=== PATIENT | female | born 1950 | race Caucasian/White ===

== ENCOUNTER 2017-03-29 07:40 | Inpatient (IN) | payer MEDICARE, OTHER ==
[~2017-03-29] VITALS: Ht 144.8 cm; Wt 83.9 kg
[~2017-03-29 07:40] MED LIST: DULO60CA45 PO; FLUT50DI IH; HYDR-3658 PO; METF500T7 PO; OMEP20CA10 PO; PREG100C PO; RIVA10TA PO; SIMV20TA6 PO; VENL75CA56 PO
[2017-03-29 08:00] VITALS: BP 152/71
--- NOTE | 2017-03-29 08:01 | NUR ---
RN NOTES PT BROUGHT TO FLOOR, DIRECT ADMIT. PT ON RA, RESPIRATIONS ARE EVEN AND UNLABORED. SAFETY MEASURES ARE IN PLACE, CALL LIGHT IS IN REACH. WILL CONTINUE TO MONITOR.
[2017-03-29] MEDS ORDERED: BACITRACIN 50000 UNITS/VIAL ONE (08:50)
[2017-03-29] MEDS ORDERED: KETOROLAC TROMETHAMINE INJ 30 MG/ML VIAL ONE (08:50)
[2017-03-29] MEDS ORDERED: BUPIVACAINE 0.5 % PF 150 MG/30 ML VIAL ONE ×2 (08:50→11:06)
[2017-03-29] MEDS ORDERED: MIDAZOLAM HCL 2 MG/2ML VIAL ONE (09:20)
[2017-03-29] MEDS ORDERED: FENTANYL PF 100MCG/2ML AMPUL ONE ×4 (09:20→12:30)
[2017-03-29] MEDS ORDERED: TRANEXAMIC ACID 3,000 MG in SODIUM CHLORIDE IRRIG SOLUTION 70 ML IR ONE (09:30)
[2017-03-29] MEDS ORDERED: ROCURONIUM BROMIDE 50 MG/5 ML ONE (10:22)
[2017-03-29] MEDS ORDERED: SENOKOT 8.6 MG TABLET PO PRN (13:00)
[2017-03-29] MEDS ORDERED: IV D5/0.45 NACL 1,000 ML IV PRN (13:00)
[2017-03-29] MEDS ORDERED: AMBIEN 5 MG TABLET PO PRN (13:00)
[2017-03-29] MEDS ORDERED: HYDROCODONE/APAP 5/325MG 1 EACH TABLET PO PRN (13:00)
[2017-03-29] MEDS ORDERED: DULCOLAX 10 MG/SUPP.RECT RC PRN (13:00)
[2017-03-29] MEDS ORDERED: COLACE 250 MG CAPSULE PO PRN (13:00)
[2017-03-29] MEDS ORDERED: ZOFRAN 4mg/2ML IV PRN (13:00)
[2017-03-29 13:25] VITALS: BP 136/72
[2017-03-29 14:00] VITALS: BP 122/68
[2017-03-29] MEDS ORDERED: HYDROMORPHONE MDV 30 MG in IV NS 0.9% 15 ML, PCA TOTAL VOLUME 1 BAG IV PRN ×3 (14:00)
[2017-03-29] MEDS ORDERED: HYDROCODONE/APAP 10/325MG 1 EA TABLET PO PRN (14:30)
[2017-03-29] MEDS ORDERED: CLONIDINE HCL 0.1 MG TABLET PO PRN (14:30)
[2017-03-29] MEDS ORDERED: MAG HYDROX/AL HYDROX/SIMETH 30 ML UDC PO PRN (14:30)
[2017-03-29] MEDS ORDERED: MAGNESIUM HYDROXIDE 30 ML UDC PO PRN (14:30)
[2017-03-29] MEDS ORDERED: PROMETHAZINE HCL 25 MG/ML AMPUL IM PRN (14:30)
[2017-03-29] MEDS ORDERED: MENTHOL/CETYLPYRD (CEPACOL) 1 LOZ LOZENGE PO PRN (14:30)
[2017-03-29] MEDS ORDERED: ONDANSETRON HCL/PF 4 MG/2 ML VIAL IV PRN (14:30)
[2017-03-29] MEDS ORDERED: diphenhydrAMINE HCL 25 MG CAPSULE PO PRN (14:30)
[2017-03-29] MEDS ORDERED: NALOXONE HCL 0.4 MG/ML AMPUL IV PRN (14:30)
[2017-03-29] MEDS ORDERED: BISACODYL SUPP (10 MG) 10 MG/SUPP.RECT SUPP.RECT RC PRN (14:30)
[2017-03-29 16:00] VITALS: BP_SYST 107; BP_SYST 130; BP_DIAS 57; BP_DIAS 69
[2017-03-29] MEDS: DOCUSATE SODIUM 100 MG CAPSULE PO SCH (16:51)
[2017-03-29] MEDS: ANCEF 1 G in IV D5W 50 ML IV SCH (17:02)
--- NOTE | 2017-03-29 18:37 | NUR ---
RN NOTES PT IS SITTING UP IN BED, RESTING COMFORTABLY. PT ON 2L O2, RESPIRATIONS ARE EVEN AND UNLABORED. IV ON L HAND INTACT AND RUNNING D51/2 NS @ 125ML/HR. DILAUDID IN AIRFIELD OPERATIONS SPECIALIST PUMP CONNECTED TO PT, PT HAS CONTROL FOR DEMAND DOSE. VITAL SIGNS ARE WNL, NO SIGNS OF DISTRESS NOTED. SAFETY MEASURES ARE IN PLACE, CALL LIGHT IS IN REACH. WILL ENDORSE TO SAS STATISTICAL PROGRAMMER RN FOR CONTINUITY OF CARE.
[2017-03-29 20:00] VITALS: BP 128/64
--- NOTE | 2017-03-29 20:00 | NUR ---
VSS 99.2-95-RR 18-20 BP 128/64. SATS 93% ON O2 @ 2 LITERS NC. COLOR GOOD. PATIENT A&O X 3 WITH APPROPRIATE AFFECT. SKIN WARM, DRY, AND INTACT WITH IV VIA LEFT HAND FOR D5 1/2 N.S. @ 125 CC/HOUR. PATIENT ALSO HAS A RIGHT KNEE DRESSING S/P RIGHT KNEE ARTHROPLASTY EARLIER TODAY. PATIENT HAS AN APPROPRIATE 1+ NONPITTING EDEMA TO RIGHT LEG AND FOOT BUT WITH BRISK CAPILLARY REFILL AND GOOD STRONG PEDAL PULSES BILATERALLY. ABDOMEN SOFTLY DISTENDED WITH AUDIBLE BOWEL SOUNDS. INDWELLING OLEA CATHETER FOR QUANTITY SUFFICIENT OF A CLEAR, YELLOW URINE. PAIN CURRENTLY CONTROLLED BY A DILAUDID RN PEDIATRIC 1:1 CONCENTRATION WITH NO BASAL RATE AND RN PEDIATRIC OFFERS 0.2 MG/10 MINUTES. VTBI=29.6. PATIENT SHOWS NO SIGNS OF ACUTE CARDIAC/RESPIRATORY DISTRESS OR SUPPRESSION. Addendum: 03/30/17 at 0006 by GIL MCCOY RN JS NOTE
[2017-03-29] MEDS: PANTOPRAZOLE 40 MG TABLET.DR PO SCH (21:38)
--- NOTE | 2017-03-29 22:00 | NUR ---
RN NOTE HE=20, COLOR GOOD. PATIENT MAINTAINS PAIN CONTROL WITH DILAUDID BATCH TANK CONTROLLER, NO BASAL, 0.2 MG/10 MINUTES. VTBI=29.1. PATIENT RATES PAIN 4/10 WITH MOVEMENT. ICE APPLIED TO RIGHT KNEE AT ALL TIMES. NEUROVASCULAR CIRC CHECKS TO RIGHT LEG UNCHANGED. +ROM, SENSATION, NO INCREASE IN SWELLING, +ROM TO TOES, GOOD STRONG, SYMMETRICAL PEDAL PULSES BILATERALLY. PT CONTINUES TO BE A&O X 3 WITH APPROPRIATE AFFECT, NO CHANGES IN NEURO STATUS, ELY SYMMETRICALLY, RESPIRATIONS ARE REGULAR AND UNLABORED. PATIENT SHOWS NO SIGNS OF ACUTE CARDIAC/RESPIRATORY DISTRESS OR SUPPRESSION.
--- NOTE | 2017-03-30 | NUR ---
RN NOTE PATIENT RESTS QUIETLY. COLOR GOOD AND RESPIRATIONS AT 19/MINUTE, REGULAR AND UNLABORED. DILAUDID CASING RUNNER, NO BASAL, OFFERS 0.2 MG/10 MINUTES. VTBI=29.1. PATIENT HAS NOT USED ANY OF THE CASING RUNNER IN THE LAST 2 HOURS. PAIN AT 0/10 ALLOWING PATIENT TO LIE STILL IN BED WITH EYES CLOSED WITH REGULAR UNLABORED RESPIRATION. PATIENT SHOWS NO SIGNS OF ACUTE CARDIAC/RESPIRATORY DISTRESS OR SUPPRESSION.
--- NOTE | 2017-03-30 02:00 | NUR ---
RN NOTE PLEASE NOTE THAT PATIENT WAS NOT USING FISHER HAND LINE DESPITE THE NEW ONSET OF A SEVERE HEADACHE PAIN AT 11/26. PATIENT SEEMED TO THINK THAT THE FISHER HAND LINE WAS ONLY FOR RIGHT KNEE PAIN. NURSE GAVE OXYCODONE 5 MG PO PRN FOR THAT SEVERE HEADACHE PAIN AND THEN ENCOURAGED PT TO PLEASE USE THE FISHER HAND LINE FOR ALL KINDS OF PAIN THAT SHE MIGHT BE HAVING. PATIENT INDICATED THAT SHE WOULD USE THE FISHER HAND LINE MORE READILY FOR ALL KINDS OF PAIN. RR=20-24. COLOR GOOD. PATIENT SHOWS NO SIGNS OF ACUTE CARDIAC/RESPIRATORY DISTRESS OR SUPPRESSION.
[2017-03-30] MEDS: ANCEF 1 G in IV D5W 50 ML IV SCH (02:03)
[2017-03-30] MEDS: oxyCODONE IR immediate release 5 MG CAPSULE PO PRN ×4 (02:12→23:46)
[2017-03-30 04:00] VITALS: BP 129/77
--- NOTE | 2017-03-30 04:00 | NUR ---
RN NOTE VSS 98.8-87-20 BP 129/77. SATS 97% ON ROOM AIR. PATIENT IS EASILY AROUSABLE AND SEEMS TO REST QUIETLY. NO USAGE OF THERMOFORMING OPERATOR-DILAUDID THERMOFORMING OPERATOR VTBI=29.1. PATIENT SHOWS NO SIGNS OF ACUTE CARDIAC/RESPIRATORY DISTRESS OR SUPPRESSION.
--- NOTE | 2017-03-30 06:00 | NUR ---
RN NOTE DILAUDID MANNEQUIN MOUNTER GRAND TOTAL USAGE = 29.0; SO, PT USED 0.1 MG WITHIN THE PAST 2 HOURS AND PATIENT SHOWS NO SIGNS OF ACUTE CARDIAC/RESPIRATORY DISTRESS OR SUPPRESSION. PATIENT USED A GRAND TOTAL OF 0.6 MG THIS 12-HOUR SHIFT.
--- NOTE | 2017-03-30 07:15 | NUR ---
RN MS NOTES PATIENT ALERT AND ORIENTED X4, NO RESPIRATORY DISTRESS NOTED, LAST SORTER SETTINGS VERIFIED, VOLUME REMAINING IN THE BAG IS 29MG. ALL NEEDS ATTENDED AND MET, CALL LIGHT WITHIN REACH, SAFETY MEASURES IN PLACED, WILL CONTINUE TO MONITOR.
[2017-03-30 07:56] LABS: HEMOGLOBIN 11.1 g/dL (11.5-14.8)
[2017-03-30 08:00] VITALS: BP 130/72
[2017-03-30] MEDS ORDERED: ASPIRIN 325 MG TABLET PO SCH (09:00)
[2017-03-30] MEDS: DOCUSATE SODIUM 100 MG CAPSULE PO SCH ×2 (09:24→16:00)
[2017-03-30] MEDS: MORPHINE SULFATE INJ 4 MG/ML DISP.SYRIN IM PRN ×2 (13:39→17:02)
[2017-03-30 14:47] LABS: CALCIUM, SERUM 8.5 mg/dL (8.5-10.1); CREATININE 0.9 mg/dL (0.6-1.3); POTASSIUM 4.8 mmol/L (3.5-5.1)
[2017-03-30 16:00] VITALS: BP 110/57
[2017-03-30] MEDS: PREGABALIN 100 MG CAPSULE PO SCH (16:00)
[2017-03-30] MEDS: DULOXETINE HCL 30 MG CAPSULE.DR PO SCH (16:00)
[2017-03-30] MEDS: VENLAFAXINE XR 75 MG CAP.SR.24H PO SCH (16:00)
[2017-03-30] MEDS: METFORMIN XR 500 MG TAB.SR.24H PO SCH (16:00)
[2017-03-30] MEDS ORDERED: RIVAROXABAN 10 MG TABLET PO SCH (17:00)
--- NOTE | 2017-03-30 18:11 | NUR ---
RN MS NOTES PATIENT IN BED, A/OX3, DENIES PAIN AT THIS TIME, PATIENT IS CURRENTLY ON PAIN MEDICATION REGIMEN AND IS EFFECTIVE. PHYSICAL THERAPY EVAL COMPLETED, PATIENT WAS ABLE TO USE CPM ON RIGHT LEG, CPM WAS USED FOR 3 HOURS. IVF AND ELECTRONICS TECHNOLOGY DEPARTMENT CHAIR DISCONTINUED BY DR. CRABTREE. RIGHT LEG COVERED WITH CALOS BANDAGE, SURGICAL DRESSING INTACT, NO BLEEDING NOTED, AWAITING FOR MD FOR DRESSING CHANGED. ALL NEEDS ATTENDED AND MET, ALL DUE MEDS GIVEN ORDERED, SAFETY MEASURES IN PLACED, CALL LIGHT WITHIN REACH, WILL ENDORSE TO PETROLEUM TERMINAL PLANT OPERATOR FOR AZEB.
--- NOTE | 2017-03-30 18:28 | NUR ---
JS MS NOTES RECEIVED A CALL FROM DR. ANTHONY PAIN MANAGEMENT, RECEIVED NEW ORDERS TO William/David WARD AND KEEP DR. POLLOCK'S POST OP ORDER OF ASPIRIN 325MG BID. INSTRUCTED BY DR. ANTHONY TO GIVE OXYCODONE X1 NOW. AND TO ENDORSE TO CENTER MGR TO ALTERNATE WITH MORPHINE IM. Addendum: 03/31/17 at 1916 by ZECHARIAH SHOOK RN ADDENDUM: INFORMED DR. ANTHONY PATIENT RECEIVED MORPHINE VIA IV PUSH, PER ITS FINE, JUST ENDORSE TO CENTER MGR TO GIVE IT IM.
--- NOTE | 2017-03-30 19:40 | NUR ---
MS RN INITIAL NOTES PT IS IN BED SLEEPING EASILY AROUSED. BREATHING EVENLY AND UNLABORED ON RA. NO SIGNS OF SOB OR DISTRESS. DENIES PAIN AT THIS TIME. S/P RT KNEE TOTAL ARTHROPLASTY, WOUND DRESSING IN PLACE. TO BE CHANGED BY MD TOMORROW. ORDERS TO GIVE MORPHINE AND OXY FOR PT PAIN. BED IS IN LOW AND LOCKED POSITION, CALL LIGHT WITHIN REACH. WILL CONTINUE TO MONITOR PT
[2017-03-30 20:00] VITALS: BP 125/62
--- NOTE | 2017-03-30 20:00 | NUR ---
MS WEINSTEIN NOTES PT O2 80%, PLACED ON SIMPLE MASK 6 L, NO IMPROVEMENT. PLACED PT ON NON REBREATHER 5L, O2 SAT INCREASED TO 93%. TEMP IS 102.1, COOLING MEASURES INITIATED. TYLENOL TO BE GIVEN EPIC FIXING MACHINE OPERATOR PAGED Addendum: 03/31/17 at 0316 by DACIA ROGERS PT WAS ALSO PLACED ON TELE MONITOR FOR HR 136 - ST WITH BBB
[2017-03-30] MEDS: TYLENOL 650 MG TABLET PO PRN (20:05)
[2017-03-30 20:25] VITALS: BP 125/62
--- NOTE | 2017-03-30 20:35 | NUR ---
MS RN NOTES DIESEL FLEET MECHANIC CASSIE SOLITARIO ORDERED CXR, ABG, AND BLOOD CULTURES STAT. WILL CONTINUE TO MONITOR PT
[2017-03-30 21:23] LABS: ABG BASE EXCESS -1.1 mmol/L; ABG OXYGEN SATURATION 98.3 % (92.0-98.5); ABG PCO2 37.3 mmHg (35.0-45.0); ABG PH 7.412 (7.350-7.450); ABG PO2 146.3 mmHg (75.0-100.0); AaDO2 384.9 mmHg; COHb 0.1 % (0.5-1.5); MetHb 0.5 % (0.0-1.5); O2Hb 97.7 % (94.0-97.0); SITE, ABG Left Brachial; VENT MODE, BG NRB
[2017-03-30] MEDS: PANTOPRAZOLE 40 MG TABLET.DR PO SCH (21:29)
--- NOTE | 2017-03-30 23:05 | NUR ---
MS RN NOTES MD ANTHONY ORDERED MORPHINE TO BE DECREASED TO 3MG IM AND ORDERED BILATERAL LOWER EXTREMITY DOPPLER TO R/O DVT
[2017-03-30] MEDS ORDERED: MORPHINE SULFATE INJ 4 MG/ML DISP.SYRIN IM PRN (23:30)
[2017-03-31] VITALS (7 sets, daily range): BP systolic 97–126; BP diastolic 55–71
[2017-03-31] MEDS: TYLENOL 650 MG TABLET PO PRN (02:22)
[2017-03-31] MEDS ORDERED: MORPHINE SULFATE INJ 4 MG/ML DISP.SYRIN IM PRN ×2 (02:30)
[2017-03-31] MEDS: oxyCODONE IR immediate release 5 MG CAPSULE PO PRN ×2 (04:53→09:21)
--- NOTE | 2017-03-31 04:54 | NUR ---
MS RN NOTES PT COMPLAINTS OF LEG PAIN. BP IS TOO LOW FOR MORPHINE. OXY WAS GIVEN. WILL F/U ON PAIN ASSESSMENT
--- NOTE | 2017-03-31 06:31 | NUR ---
MS RN CLOSING NOTES PT IS IN BED SLEEPING, EASILY AROUSED. DRESSING CHANGE SCHEDULED FOR TODAY.ALL NEEDS WERE ANTICIPATED AND MET. INCENTIVE SPIROMETRY AT BEDSIDE. CALL LIGHT IS WITHIN REACH. WILL ENDORSE TO DAY SHIFT
[2017-03-31 07:18] LABS: BASOPHILS % (AUTO) 0.1 % (0.0-2.0); EOSINOPHILS % (AUTO) 0.4 % (0.0-6.0); HEMATOCRIT 32 % (33-45); HEMOGLOBIN 10.7 g/dL (11.5-14.8); LYMPHOCYTES # (AUTO) 1.9 /CMM (0.8-4.8); LYMPHOCYTES % (AUTO) 15.5 % (20.0-44.0); MEAN CORPUSCULAR HEMOGLOBIN 29 PG (26.0-33.0); MEAN CORPUSCULAR HGB CONC 33 g/dl (31.0-36.0); MEAN CORPUSCULAR VOLUME 88 fL (82-100); MONOCYTES % (AUTO) 8.4 % (2.0-12.0); NEUTROPHILS % (AUTO) 75.6 % (43.0-81.0); PLATELET COUNT (AUTO) 176 /CMM (150-450); RDW COEFFICIENT OF VARIATION 14.8 (11.5-15.0); RED BLOOD CELL COUNT(AUTO) 3.65 MIL/uL (4.0-5.2)
--- NOTE | 2017-03-31 07:50 | NUR ---
RN MS NOTES PATIENT ALERT AND ORIENTED X3, ON SIMPLE MASK AT 7LPM VIA NC WITH SPO2 OF 96%. BREATHING EVEN AND UNLABORED. NO SOB NOTED. PER PATIENT SHE FEELS COMFORTABLE AT THIS TIME, DENIES PAIN OR MEDICATION. BLOOD PRESSURE 113/71 AND HR 96. NEEDS ATTENDED AND MET, CALL LIGHT WITHIN REACH, WILL CONTINUE TO MONITOR.
[2017-03-31 07:57] LABS: CALCIUM, SERUM 8.5 mg/dL (8.5-10.1); CREATININE 0.8 mg/dL (0.6-1.3); PHOSPHORUS 3.2 mg/dL (2.5-4.9); POTASSIUM 4.2 mmol/L (3.5-5.1)
[2017-03-31] MEDS ORDERED: ASPIRIN 325 MG TABLET PO SCH (09:00)
[2017-03-31] MEDS: VENLAFAXINE XR 75 MG CAP.SR.24H PO SCH (09:21)
[2017-03-31] MEDS: DULOXETINE HCL 30 MG CAPSULE.DR PO SCH (09:21)
[2017-03-31] MEDS: DOCUSATE SODIUM 100 MG CAPSULE PO SCH ×2 (09:21→16:14)
[2017-03-31] MEDS: PREGABALIN 100 MG CAPSULE PO SCH (09:21)
[2017-03-31] MEDS: METFORMIN XR 500 MG TAB.SR.24H PO SCH (09:21)
--- NOTE | 2017-03-31 12:30 | NUR ---
RN MS NOTES BLE DOPPER NEGATIVE, RECEIVED NEW ORDER FOR CT PULMONARY ANGIOGRAM FROM DR. CRABTREE.
--- NOTE | 2017-03-31 12:57 | NUR ---
JS BAKER NOTES RECEIVED NEW ORDER FROM DR. CRABTREE TO RESTART XARELTO ORDER TODAY FOR DVT PROPHYLAXIS. ORDER NOTED AND CARRIED OUT. Addendum: 03/31/17 at 1846 by ZECHARIAH SHOOK RN ADDENDUM: PER HUMAN RESOURCES COMPENSATION ANALYST, PATIENT'S METFORMIN NEEDS TO BE HELD FOR [address] D/T THE CONTRAST. PATIENT AWARE.
[2017-03-31] MEDS: IV NS 0.9% 1,000 ML IV PRN (13:37)
[2017-03-31] MEDS ORDERED: IOHEXOL-350 100 ML VIAL IV ONE (13:57)
[2017-03-31] MEDS: ALBUTEROL FS 2.5 MG/3 ML VIAL.NEB NEB SCH ×2 (14:19→19:49)
[2017-03-31] MEDS: HYDROCODONE/APAP 5/325MG 1 EACH TABLET PO PRN ×2 (16:15→22:05)
[2017-03-31] MEDS: RIVAROXABAN 10 MG TABLET PO SCH (16:17)
--- NOTE | 2017-03-31 16:20 | NUR ---
JS MS NOTES PATIENT SEEN BY DR. CRABTREE, CT SCAN RESULT RELAYED, PER MD DO NOT GIVE MORPHINE, IT CAUSES RESPIRATORY DISTRESS TO THE PATIENT. MORPHINE AND OXY DISCONTINUED BY DR. CRABTREE AND RECEIVED NEW ORDER FOR NORCO 5/325MG PRN AND DISCONTINUE OLEA CATHETER. PATIENT AWARE. PATIENT AND DR. CRABTREE DISCUSSED USE OF CPAP AT NIGHT TIME. PATIENT IS IN NO DISTRESS AT THIS TIME. BREATHING EVEN AND UNLABORED, ON 5LPM VIA NC WITH SPO2 OF 96%. ALL NEEDS ATTENDED AND MET. WILL CONTINUE TO MONITOR. Addendum: 03/31/17 at 183 by ZECHARIAH SHOOK RN ADDENDUM: BECKY JOHNSON AT BEDSIDE, CHANGED THE PATIENT'S DRESSING. INFORMED OF DR. CRABTREE'S ORDER OF XARELTO. PER LUIS FERNANDO, ITS FINE. Addendum: 03/31/17 at 183 by ZECHARIAH SHOOK RN ADDENDUM: WBC RESULT RELAYED TO DR. CRABTREE. NO NEW ORDER.
--- NOTE | 2017-03-31 16:30 | NUR ---
JS BAKER NOTES ABG RESULT RELAYED TO DR. CRABTREE. RECEIVED ORDER FOR CPAP. Addendum: 03/31/17 at 1834 by ZECHARIAH SHOOK RN ADDENDUM: CLARIFIED WITH DR. CRABTREE RE: ASPIRIN ORDER. PER , DISCONTINUE ASPIRIN ORDER AND CONTINUE WITH XARELTO.
--- NOTE | 2017-03-31 18:09 | NUR ---
RN MS NOTES PATIENT WAS MOSTLY ON SUPINE POSITION THROUGHOUT THE SHIFT, PATIENT REFUSED TO BE TURNED COMPLETELY D/T PAIN. EXPLAINED RISKS AND BENEFITS OF TURNING AND REPOSITIONING. EDUCATED RE: SKIN BREAKDOWN. PATIENT ONLY ALLOWED EACH SIDE TO BE OFFLOADED WITH PILLOWS. OFFERED TO MOVE PATIENT TO AN ISOFLEX BED, PER PATIENT, "I CANT RIGHT NOW" DR. CRABTREE MADE AWARE, Z-GUARD ORDERED AND WOUND CONSULT ORDERED. OLEA CATHETER REMOVED, PATIENT ABLE TO TOLERATE PROCEDURE. DENIES PAIN AT THIS TIME.
--- NOTE | 2017-03-31 19:10 | NUR ---
RN MS NOTES PATIENT ALERT AND ORIENTED X3, NO DISTRESS NOTED, ON O2 AT 5LPM VIA NC, NO SOB NOTED, OFFERED TO BE TURNED, PATIENT REFUSED, KEPT SKIN CLEAN AND DRY, IVF INFUSING AND TOLERATING WELL, ALL NEEDS ATTENDED AND MET, CALL LIGHT WITHIN REACH, WILL ENDORSE TO DEVULCANIZER LOADER FOR AZEB.
--- NOTE | 2017-03-31 19:50 | NUR ---
MS RN INITIAL NOTES PT IS IN BED RESTING WITH FAMILY AT BEDSIDE. STATING THAT SHE IS FEELING MUCH BETTER TODAY WITHOUT ANY SOB. PT IS BREATHING EVENLY AND UNLABORED ON 5L NC. DENIES PAIN AT THIS TIME. INFORMED PT THAT SHE WILL NEED TO BE REPOSITIONED THROUGHOUT THE NIGHT, ENCOURAGED PO INTAKE. BED IS IN LOW AND LOCKED POSITION, CALL LIGHT IS WITHIN REACH. WILL CONTINUE TO MONITOR
--- NOTE | 2017-03-31 21:00 | NUR ---
MS RN NOTES PT IS REFUSING BIPAP, SHE DOESN'T LIKE THE WAY IT MAKES HER FEEL
[2017-03-31] MEDS: PANTOPRAZOLE 40 MG TABLET.DR PO SCH (21:03)
--- NOTE | 2017-03-31 21:06 | NUR ---
PATIENT WANTED BIPAP OFF. STATED SHE WAS GETTING DIZZY. RN IN THE ROOM AND NOTIFIED. PT PLACED BACK ON 5L NC. WILL CONT TO MONITOR.
[2017-03-31] MEDS: Z GUARD REMEDY 2 OZ OINT TP SCH (21:08)
[2017-04-01] MEDS: IV NS 0.9% 1,000 ML IV PRN (04:40)
[2017-04-01] MEDS: HYDROCODONE/APAP 5/325MG 1 EACH TABLET PO PRN (04:42)
--- NOTE | 2017-04-01 06:46 | NUR ---
MS RN CLOSING NOTES PT IS IN BED RESTING, DENIES PAIN AT THIS TIME. NO SIGNS OF SOB OR DISTRESS, BREATHING EVENLY AND UNLABORED ON RA. PT HAD ONE FOR VOID 350 ML. RIGHT LEG DRESSING INTACT AND NO SIGNS OF LEAKAGE. ALL NEEDS WERE ANTICIPATED AND MET. WILL ENDORSE TO DAYSHIFT.
[2017-04-01 07:21] LABS: BASOPHILS % (AUTO) 0.4 % (0.0-2.0); EOSINOPHILS # (AUTO) 0.1 /CMM (0.0-0.7); EOSINOPHILS % (AUTO) 0.7 % (0.0-6.0); HEMATOCRIT 29 % (33-45); HEMOGLOBIN 9.9 g/dL (11.5-14.8); LYMPHOCYTES # (AUTO) 1.3 /CMM (0.8-4.8); LYMPHOCYTES % (AUTO) 13.7 % (20.0-44.0); MEAN CORPUSCULAR HEMOGLOBIN 29 PG (26.0-33.0); MEAN CORPUSCULAR HGB CONC 34 g/dl (31.0-36.0); MEAN CORPUSCULAR VOLUME 87 fL (82-100); MONOCYTES # (AUTO) 0.7 /CMM (0.1-1.30); MONOCYTES % (AUTO) 7.6 % (2.0-12.0); NEUTROPHILS # (AUTO) 7.3 /CMM (1.8-8.9); NEUTROPHILS % (AUTO) 77.6 % (43.0-81.0); PLATELET COUNT (AUTO) 162 /CMM (150-450); RDW COEFFICIENT OF VARIATION 14.6 (11.5-15.0); RED BLOOD CELL COUNT(AUTO) 3.36 MIL/uL (4.0-5.2); WHITE BLOOD COUNT (AUTO) 9.4 K/uL (4.3-11.0)
[2017-04-01 07:34] LABS: CALCIUM, SERUM 8.5 mg/dL (8.5-10.1); CREATININE 0.7 mg/dL (0.6-1.3); MAGNESIUM 1.9 mg/dL (1.8-2.4); PHOSPHORUS 2.7 mg/dL (2.5-4.9); POTASSIUM 3.8 mmol/L (3.5-5.1)
[2017-04-01 08:00] VITALS: BP 128/81
[2017-04-01] MEDS: METFORMIN XR 500 MG TAB.SR.24H PO SCH (08:21)
--- NOTE | 2017-04-01 08:21 | NUR ---
RN NOTES HELD METFORMIN DUE TO PT. HAVING CT WITH CONTRAST ON 03/31. PER PROTOCOL WILL HOLD METFORMIN FOR [address] WITH CONTRAST.
[2017-04-01] MEDS: PREGABALIN 100 MG CAPSULE PO SCH (08:29)
[2017-04-01] MEDS: DOCUSATE SODIUM 100 MG CAPSULE PO SCH ×2 (08:29→16:57)
[2017-04-01] MEDS: VENLAFAXINE XR 75 MG CAP.SR.24H PO SCH (08:30)
[2017-04-01] MEDS: DULOXETINE HCL 30 MG CAPSULE.DR PO SCH (08:30)
[2017-04-01] MEDS: ALBUTEROL FS 2.5 MG/3 ML VIAL.NEB NEB SCH ×2 (08:30→14:05)
[2017-04-01] MEDS: Z GUARD REMEDY 2 OZ OINT TP SCH (08:32)
[2017-04-01] MEDS ORDERED: HYDROCODONE/APAP 5/325MG 1 EACH TABLET PO ONE (10:00)
--- NOTE | 2017-04-01 10:00 | NUR ---
RN NOTES DR. ANTHONY CALLED WITH NEW ORDERS TO GIVE NORCO 5/325 MG PO Q4HS FOR PAIN PRN, AND A ONE TIME DOSE NOW.
--- NOTE | 2017-04-01 12:02 | NUR ---
RN NOTES PT. WAS SEEN BY PHYSICAL THERAPY AND AFTER PLACED ON CPM MACHINE AT 1000. CPM MACHINE WAS REMOVED AFTER 2 HOURS. PT. TOLERATED CPM MACHINE WELL. WILL CONTINUE WITH PHYSICAL THERAPY.
[2017-04-01] MEDS ORDERED: HYDROCODONE/APAP 5/325MG 1 EACH TABLET PO PRN (14:30)
[2017-04-01 16:00] VITALS: BP 124/79
[2017-04-01] MEDS: TYLENOL 650 MG TABLET PO PRN (16:02)
[2017-04-01] MEDS: RIVAROXABAN 10 MG TABLET PO SCH (17:01)
--- NOTE | 2017-04-01 18:58 | NUR ---
DOCTOR OF NURSING PRACTICE NOTES PT. LEFT IN MEDICALLY STABLE CONDITION. DISCHARGE INSTRUCTIONS GIVEN, WITH PRESCRIPTION. PT. VERBALIZED UNDERSTANDING. PT. BELONGINGS LIST CHECKED AND SIGNED. ID BAND AND IV WAS REMOVED WITHOUT COMPLICATIONS. DISCHARGE PACKET WAS GIVEN TO AMBULANCE CREW WITH KNEE IMMOBILIZER AND FWW. REPORT WAS GIVEN TO [facility] JS BRANDT. ALL QUESTIONS ANSWERED. ENDORSED TO NURSE THAT PT. WILL NEED TO BE ON OXYGEN VIA NASAL CANNULA, AND CPAP AT NIGHT.
== END 2017-04-01 19:00 | DRG 469 ==
LOC: DS 07:40 → MED 07:41
PROVIDERS: ADMIT Specialist; ATTEND Internal Medicine
PROC: 0SRC0J9 Replacement of Right Knee Joint with Synthetic Substitute, Cemented, Open Approach (ICD-10-PCS; principal; 2017-03-29 10:45)
DX: M17.11 Unilateral primary osteoarthritis, right knee (principal); J96.01 Acute respiratory failure with hypoxia; E66.2 Morbid (severe) obesity with alveolar hypoventilation; Z68.41 Body mass index [BMI] 40.0-44.9, adult; E11.42 Type 2 diabetes mellitus with diabetic polyneuropathy; E78.5 Hyperlipidemia, unspecified; K21.9 Gastro-esophageal reflux disease without esophagitis; Z79.899 Other long term (current) drug therapy; M19.90 Unspecified osteoarthritis, unspecified site; F41.9 Anxiety disorder, unspecified; F32.9 Major depressive disorder, single episode, unspecified; G89.4 Chronic pain syndrome; H91.90 Unspecified hearing loss, unspecified ear; I10 Essential (primary) hypertension; Z83.3 Family history of diabetes mellitus; Z82.49 Family history of ischemic heart disease and other diseases of the circulatory system; I25.10 Atherosclerotic heart disease of native coronary artery without angina pectoris
CPT/HCPCS: 36415; 36600; 71010-TC; 80048-TC; 82803-TC; 82962-TC; 83735-TC; 84100-TC; 85025-TC; 85027-TC; 86850-TC; 86921-TC; 87040-TC; 87081-TC; 88305-TC; 88311-TC; 93970-TC; 94660; 94799-TC; 97110-TC; 97116-TC; 97530-TC; 97760-TC; A4216; A4217; A4606; A6253; A6402; C1713; J0360; J0690; J1100; J1170; J1885; J2250; J2270; J2405; J2704; J3010; J3490; J7030; J7060; Q9967; Z7610